=== PATIENT | female | born 1995 | race Caucasian/White ===

== ENCOUNTER 2021-04-27 11:53 | Emergency (ER) | payer OTHER, SELFPAY ==
[2021-04-27 12:04] VITALS: BP 130/81; PULSE 83; RESP 16; TEMP 37.2; O2SAT 100
--- NOTE | 2021-04-27 12:14 | ED.GENADULT ---
HPI - General Adult General Chief complaint: Upper Respiratory Infection Stated complaint: Ear Pain/Sore Throat Time Seen by Provider: 04/27/21 11:55 Source: patient Mode of arrival: ambulatory Limitations: no limitations History of Present Illness HPI narrative: 25 y/o female. PMHx None reported. Presents to [facility] today with acute complaints of RT side otalgia, worsening in the past 72 hours. Client reports associated nasal congestion and PND. Denies fever, chills, myalgia. No neck pain or nuchal rigidity. No cough, congestion, dyspnea. Pt is a non-smoker. Tom known ill contacts or Covid 19 concerns. She is without additional acute c/o illness upon PE. Related Data Allergies Allergy/AdvReac Type Severity Reaction Status Date / Time No Known Allergies Allergy Unverified 10/30/16 10:20 Review of Systems Review of Systems: CONSTITUTIONAL: Denies fever, chills, sweats. EYES: Denies visual changes, redness, discharge. ENT: Positive rhinorrhea, congestion, RT side otalgia. No Sore throat. CARDIOVASCULAR: Denies chest pain, palpitations, edema. RESPIRATORY: Denies dyspnea, wheezing, cough GASTROINTESTINAL: Denies abdominal pain, nausea, vomiting, diarrhea. GENITOURINARY: Denies dysuria, hematuria, abnormal discharge SKIN: Denies rash or itching. MUSCULOSKELETAL: Denies acute back pain, joint pain, or myalgia. NEUROLOGIC: Denies numbness, or focal weakness. PSYCHIATRIC: Denies anxiety or depression. All systems reviewed & are unremarkable except as noted in HPI and below Exam Narrative: GENERAL: This is a well-nourished, well-developed adult, in no apparent distress. HEAD: normocephalic, atraumatic. EYES: PERRL. Sclera clear/white. EARS: External ears normal. RT auditory exam reveals erythematous and bulging TM. Positive Tragus maneuver RT. No obstruction or hearing deficits. LT auditory exam is normal. NOSE: External nose normal. Positive Rhinorrhea, PND. No obstruction, nares patent. THROAT: Mucous membranes moist, posterior pharynx clear. No exudates. NECK: Neck supple, non-tender without lymphadenopathy, masses or thyromegaly. CARDIOVASCULAR: Regular rate and rhythm without murmurs, gallops, or rubs. RESPIRATORY: Clear to auscultation. Breath sounds equal bilaterally. No wheezes, rales, or rhonchi. GASTROINTESTINAL: Abdomen soft, non-tender, nondistended. Bowel sounds are active. No guarding. SKIN: warm, intact with no suspicious lesions or rash, good texture and turgor. NEURO: Alert, active, and age appropriate. No focal neurologic deficits. Course Vital Signs Vital signs: Vital Signs Temperature 37.2 C 04/27/21 12:04 Pulse Rate 83 04/27/21 12:04 Respiratory Rate 16 04/27/21 12:04 Blood Pressure 130/81 04/27/21 12:04 Pulse Oximetry 100 04/27/21 12:04 Temperature 37.2 C 04/27/21 12:04 Pulse Rate 83 04/27/21 12:04 Respiratory Rate 16 04/27/21 12:04 Blood Pressure 130/81 04/27/21 12:04 Pulse Oximetry 100 04/27/21 12:04 Medical Decision Making MDM Narrative Medical decision making narrative: -PE Consistent with OM RT. -Start Amoxicillin OP Regimen as directed. -Resumption of additional home care and OTC remedies is advised. -PCP F/U 1WK. -ER W/Emergent health status changes. Pt agrees. Differential Diagnosis Differential Diagnosis: Differential Diagnosis: Consideration of the following conditions may be warranted for the presenting problem, they are not final diagnoses: upper respiratory infection, otitis media, sinusitis, RSV viral infection, bronchitis, pharyngitis, Streptococcal sore throat, COVID-19, and other. Medical Records Medical records reviewed: Yes I reviewed the external patient's medical records. Vital Signs Vital Signs: Vital Signs Temperature 37.2 C 04/27/21 12:04 Pulse Rate 83 04/27/21 12:04 Respiratory Rate 16 04/27/21 12:04 Blood Pressure 130/81 04/27/21 12:04 Pulse Oximetry 100 04/27/21 12:04
== END 2021-04-27 12:17 | disposition home or self-care (01) ==
PROVIDERS: Emergency Provider Nurse Practitioner Adult Health
DX: H66.91 Otitis media, unspecified, right ear (principal); J06.9 Acute upper respiratory infection, unspecified
CPT/HCPCS: 99203; G0463